=== PATIENT | male | born 1985 | race Caucasian/White ===

== ENCOUNTER 2016-06-30 17:28 | Emergency (ER) | payer SELFPAY ==
[2016-06-30 17:37] VITALS: TEMP 97.5
[2016-06-30] MEDS ORDERED: ONDANSETRON DISINTEGRATING 4 MG TAB PO ONE (18:09)
[2016-06-30] MEDS ORDERED: OXYCODONE/APAP 5/325 TAB PO ONE (18:09)
--- NOTE | 2016-06-30 18:11 | EDPHY ---
H & P Stated Complaint: Left testicular pain x2 days HPI/ROS: CHIEF COMPLAINT: Left testicle pain HISTORY OF PRESENT ILLNESS: greater than 24 hours of left testicular pain. Describes as a fullness and pain. No trauma. Gradual onset. Constant duration. It waxes and wanes with mild to severe rating. At this time is currently mild rest. Worse with palpation or movement. Improved at rest. Feels he may have actually put pressure on it while sleeping. No nausea or vomiting. The pain does radiate into the left groin at times. No upper abdominal pain. No abdominal pain at rest. No painful urination. No fever or chills. No hematuria. No intercourse during the course of the pain, but he denies any recent dyspareunia or painful ejaculation. No other associated complaints or modifying factors. REVIEW OF SYSTEMS: Ten systems reviewed and are negative unless otherwise noted in the HPI EXAMINATION General Appearance: Alert, no distress Head: normocephalic, atraumatic Eyes: Pupils equal and round, no conjunctival pallor or injection . EOMs intact. ENT, Mouth: Mucous membranes moist . Uvula midline. Neck: Normal inspection, supple, non-tender Respiratory: Lungs are clear to auscultation . No wheezing, rhonchi or crackles. Cardiovascular: Regular rate and rhythm . No murmur. Pulses intact distally. Gastrointestinal: Abdomen is soft and nontender . No CVA tenderness. No tympany. No guarding. No rigidity. is no hernia : left testicle tender to palpation. No fluctuance or erythema. Normal cremasteric reflex. Normal right testicular exam. No discharge from the meatus. No blood from the meatus. No hernia Back: non-tender, no bony abnormalities Neurological: A&O, nonfocal, normal gait Skin: Warm and dry, no rash Extremities: Nontender, no pedal edema Psychiatric: Mood and affect normal DIFFERENTIAL DIAGNOSES: Including but not limited to Epididymitis, varicocele, spermatocele, hydrocele , torsion, edema MDM: 6:10 p.m. left testicular pain of greater than 24 hours. Examination and history are more consistent with epididymitis or varicocele and torsion, but I did immediately ordered an ultrasound of the testicles to rule this in or out. Pain does radiate to the abdomen he has no abdominal pain. He has no painful urination or CVA tenderness. No fever or chills. No nausea or vomiting. He has not had intercourse during this pain. Seen at Urgent Care and sent to our facility for higher level of care. Resting comfortably at this time. Urine and ultrasound are pending at this time. 8:00 p.m. notified by radiologist Dr. Morales. Ultrasound of the testicles is completely within normal limits. Specifically there is no torsion, no epididymitis, varicocele, hydrocele. 8:10 p.m. I have re-evaluated the patient. His pain is gone at this time but he feels that will return as he ambulates and moves. He has no abdominal pain of any kind at this time. We discussed the possibility of other diagnoses that I would like him to follow up with the urologist for definitive care next week. He is comfortable with this plan. We also discussed the nature of his abdominal pain as he voices a slight concern for hernia. I do not appreciate any hernia on examination today but will give him a general surgeon follow-up for workup for this. He is to return to the ER at he has any worsening of his pain, any inguinal pain, constipation, fever or nausea. Patient and his significant other are comfortable this plan and is discharged home stable condition. SUPERVISION: Source: Patient, Family Exam Limitations: No limitations - Personal History Current Tetanus/Diphtheria Vaccine: Yes Current Tetanus Diphtheria and Acellular Pertussis (TDAP): Yes - Medical/Surgical History Hx Asthma: No Hx Chronic Respiratory Disease: No Hx Diabetes: No Hx Cardiac Disease: No Hx Renal Disease: No Hx Cirrhosis: No Hx Alcoholism: No Hx HIV/AIDS: No Hx Splenectomy or Spleen Trauma: No Other PMH: PMH: denies - Social History Smoking Status: Never smoked Constitutional: Initial Vital Signs Temperature (C) 97.5 F 06/30/16 17:34 Heart Rate 90 06/30/16 17:34 Respiratory Rate 18 06/30/16 17:34 Blood Pressure 133/81 H 06/30/16 17:34 O2 Sat (%) 99 06/30/16 17:34 O2 Delivery Mode Room Air Allergies/Adverse Reactions: No Known Allergies Allergy (Unverified 06/30/16 17:37) Home Medications: Medication Instructions Recorded oxyCODONE HCL/ACETAMINOPHEN 1 each PO Q4-6PRN PRN #15 tablet 06/30/16 [Percocet 5-325 mg Tablet] Medical Decision Making - Data Points Laboratory Results: 06/30/16 06/30/16 19:00 17:35 Urine Color COLORLESS Urine Appearance CLEAR Urine pH 7.0 (5.0-7.5) Ur Specific [place] 1.002 (1.002-1.030) Urine Protein NEGATIVE (NEGATIVE) Urine Ketones NEGATIVE (NEGATIVE) Urine Blood NEGATIVE (NEGATIVE) Urine Nitrate NEGATIVE (NEGATIVE) Urine Bilirubin NEGATIVE (NEGATIVE) Urine Urobilinogen NEGATIVE EU EU (0.2-1.0) Ur Leukocyte Esterase NEGATIVE (NEGATIVE) Ur Culture Indicated? NOT INDICATED (NI) Urine Glucose NEGATIVE (NEGATIVE) C.trachomatis RNA (TMA) Pending N.gonorrhoeae RNA (TMA) Pending Medications Given: Discontinued Medications Ondansetron HCl (Zofran Odt) 4 mg PO EDNOW ONE Stop: 06/30/16 18:10 Last Admin: 06/30/16 18:15 Dose: 4 mg Oxycodone/Acetaminophen (Percocet 5/325) 1 tab PO EDNOW ONE Stop: 06/30/16 18:10 Last Admin: 06/30/16 18:15 Dose: 1 tab Departure - Departure Disposition: Home, Routine, Self-Care Clinical Impression: Testicular pain, left Condition: Good Instructions: Testicle Pain (ED), Oxycodone/Acetaminophen (By mouth) Referrals: Zafar Krishnan MD [Medical Doctor] - As per Instructions NONE *PRIMARY CARE P,. [Primary Care Provider] - As per Instructions Wilton Jade MD [Medical Doctor] - As per Instructions Stand Alone Forms: Work Limited Duty, Work Excuse Prescriptions: oxyCODONE HCL/ACETAMINOPHEN [Percocet 5-325 mg Tablet] 1 each PO Q4-6PRN PRN # 15 tablet PRN Reason: Pain, Breakthrough
[2016-06-30 18:29] LABS: COLOR COLORLESS; LEUKOCYTE ESTERASE,URINE NEGATIVE (NEGATIVE); NITRITE,URINE NEGATIVE (NEGATIVE)
[2016-06-30] MEDS ORDERED: OXYCODONE/APAP 5/325MG PREPACK#4 BTL TAKEHOME ONE (20:11)
[2016-06-30 20:14] VITALS: PULSE 80; RESP 16; O2SAT 96
[2016-06-30 20:16] VITALS: BP 120/88
[2016-07-03 14:20] LABS: CHLAMYDIA AMPLIFICATION GENPRB NEGATIVE (NEGATIVE)
== END 2016-06-30 20:24 | disposition home or self-care (01) ==
DX: N50.812 Left testicular pain (principal)